=== PATIENT | female | born 1985 | race Two or more races ===

== ENCOUNTER 2024-08-13 20:58 | Emergency (ER) | payer BC, SELFPAY ==
[2024-08-13 20:59] VITALS: BMI 32.4
--- NOTE | 2024-08-13 22:19 | XR_ITS ---
Examination: Complete OB ultrasound, less than 14 weeks, transabdominal Date and time of exam: August 13, 2024 11:50 PM Indications: Diagnosis right ovarian carcinoma, vaginal bleeding today Technique: Obstetrical ultrasound images less than 14 weeks performed via transabdominal imaging Findings: A normal shaped single intrauterine gestation is present in the uterus. pole 2.6 cm corresponds to 9 weeks 0 day gestational age Cardiac motion 171 BPM Ultrasonographic survey of visible and placental structures unremarkable. Amniotic fluid volume appears appropriate for this estimated gestational age. Absent right ovary Left ovary 3.4 cm arterial flow Impression: Viable intrauterine gestation 9 weeks 2 days.
--- NOTE | 2024-08-13 22:20 | PD.EDRME ---
Rapid Medical Screening Exam RME Arrival date/time: 08/13/24 20:58 38-year-old female A1 approximately 8 weeks presents emergency department complaining of vaginal bleeding after having sexual intercourse today. Chief Complaint: Vaginal Bleeding Time Seen by Provider: 08/13/24 21:01 Vital signs reviewed by provider: Yes
[2024-08-13 22:27] VITALS: BP 166/95; PULSE 105; RESP 20; TEMP 36.6; O2SAT 99
[2024-08-13 22:59] LABS: Basophils # (Auto) 0.1 Thou/mm3 (0.0-0.2); Basophils % (Auto) 1 % (0-2.5); Eosinophils # (Auto) 0.1 Thou/mm3 (0.0-0.5); Eosinophils % (Auto) 1 % (0-10); Hematocrit 32.4 % (36.0-46.0); Hemoglobin 10.3 g/dL (12.0-16.0); Immature Granulocytes % (Auto) 1 % (0-0); Immature Granulocytes Auto 0.07 Thou/mm3 (0.00-0.00); Lymphocytes # (Auto) 1.6 Thou/mm3 (1.0-4.8); Lymphocytes % (Auto) 11 % (10-50); Mean Corpuscular HGB Conc 31.8 g/dl (31.0-37.0); Mean Corpuscular Hemoglobin 24.3 pg (25.0-35.0); Mean Corpuscular Volume 77 fL (80-100); Monocytes # (Auto) 0.8 Thou/mm3 (0.0-0.8); Monocytes % (Auto) 6 % (0-12); Neutrophils % (Auto) 82 % (37-80); Nucleated Red Blood Cell % 0 /100 WBC (0); Platelet Count 378 Thou/mm3 (140-440); RDW Standard Deviation 44.3 fL (36.4-46.3); Red Blood Count 4.23 Miln/mm3 (4.00-5.20); White Blood Count 14.7 Thou/mm3 (3.6-11.0)
[2024-08-13 23:15] LABS: Alanine Aminotransferase 19 U/L (10-49); Albumin, Serum 4.4 gm/dL (3.5-5.0); Albumin/Globulin Ratio 1.5 (1.2-2.2); Alkaline Phosphatase 77 U/L (46-116); Anion Gap 8 (7-16); Aspartate Amino Transferase 13 U/L (0-34); BUN/Creatinine Ratio 20 Ratio (12-20); Bilirubin,Total 0.2 mg/dL (0.3-1.2); Blood Urea Nitrogen 14 mg/dL (9-23); Calcium 9.3 mg/dL (8.3-10.6); Calcium (Corrected) 9.3 mg/dL (8.5-10.1); Carbon Dioxide 23.7 mMol/L (20.0-31.0); Chloride 105 mMol/L (98-107); Creatinine (Component) 0.7 mg/dL (0.6-1.3); Estimated Creatinine Clearance 110.1 mL/min (>60); Globulin 2.9 gm/dL (2.3-3.5); Glucose 160 mg/dL (74-106); Osmolality,Calculated 277 (275-295); Potassium 3.7 mMol/L (3.4-5.1); Sodium 137 mMol/L (136-145); Total Protein 7.3 gm/dL (5.7-8.2); eGFR > 60 See Note
[2024-08-13 23:20] LABS: Collection Type, Urine Clean Catch
[2024-08-13 23:48] LABS: Beta HCG,Quantitative 85820 mIU/mL (<5.0)
[2024-08-14 00:30] LABS: Bilirubin,Urine Negative (Negative); Blood,Urine 3+ (Negative); Clarity,Urine Clear (Clear/Hazy); Color,Urine Blue (Lt Yel-Yel); Culture Indicated,Urine Not Indicated; Glucose, Urine Negative (Negative); Ketones,Urine Negative (Negative); Leukocyte Esterase,Urine Positive (Negative); Nitrite,Urine Negative (Negative); PH,Urine 6.5 (5.0-7.0); Protein,Urine 1+ (Neg - Trace); RBC,Urine 598 /hpf (0-3); Specific Gravity,Urine 1.031 (1.001-1.035); Squamous Epithelial Cell,Urine 1 /hpf (0-5); Urobilinogen,Urine Negative mg/dL (0.0-1.0); WBC,Urine 5 /hpf (0-5)
--- NOTE | 2024-08-14 00:52 | PRELIM_ITS ---
Obstetric ultrasound ( transvaginal) with doppler and wave doppler spectral analysis. August 13, 2024 2350 hours Clinical history: Early viability Technique: Real-time ultrasound was performed using Duplex scanning including arterial inflow, venous outflow, color and spectral Doppler analysis of both ovaries. Comparison: None. Findings: There is an intrauterine gestation with a single live fetus of mean gestational age 9 weeks and 2 days (CRL= 2.6 cm). cardiac activity is present at heart rate of 171 beats per minute. The yolk sac is not visualized. The uterus measures 11.9 x 5.6 x 6.0 cm. Cystic lesion in the cervix measuring 1.9 x 1.2 x 2.6 cm. S/p right oophorectomy. The left ovary measures 3.4 x 2.2 x 2.2 cm and is unremarkable. Normal blood flow in the left ovary with normal wave Doppler spectral analysis. There is no free fluid in the pelvis. Impression: Intrauterine gestation with a single live fetus of mean gestational age 9 weeks and 2 days. Report Electronically Signed By: Uziel Paez 08/14/2024 12:51:43 AM [EST]
--- NOTE | 2024-08-14 01:28 | PD.EDVAGBL ---
ED OB Contraction Preg RMI/HPI General Chief complaint: Vaginal Bleeding Stated complaint: VAGINAL BLEEDING, 8 WKS Time Seen by Provider: 08/13/24 21:01 Source: patient Arrival date/time: 08/13/24 20:58 38-year-old female A1 approximately 8 weeks presents emergency department complaining of vaginal bleeding after having sexual intercourse today. Patient reports bleeding with scant. Patient Nuys any fever, chills, vomiting, or any other associated symptom. Mode of arrival: ambulatory Limitations: no limitations RME / HPI RME / HPI Narrative: 08/13/24 20:58 38-year-old female A1 approximately 8 weeks presents emergency department complaining of vaginal bleeding after having sexual intercourse today. Related Data Previous Rx's ?Medication ?Instructions ?Recorded albuterol sulfate 90 mcg/actuation 2 puff inhalation Q6HR PRN 07/29/16 aerosol inhaler (ProAir HFA) WHEEZING #1 inh Allergies Allergy/AdvReac Type Severity Reaction Status Date / Time No Known Allergies Allergy Verified 08/13/24 20:59 Review of Systems Review of Systems Systems Reviewed: All systems reviewed, normal except as documented Constitutional Constitutional: Reports system reviewed and no additional complaints, except as documented, Denies body ache(s), Denies chills and Denies fever(s) Eyes Eyes: Reports system reviewed and no additional complaints, except as documented and Denies change in vision ENT Ears, Nose, Mouth, and Throat: Reports system reviewed and no additional complaints, except as documented, Denies disequilibrium, Denies dizziness, Denies sore throat and Denies vertigo Cardiovascular Cardiovascular: Reports system reviewed and no additional complaints, except as documented, Denies chest pain and Denies dyspnea Respiratory Respiratory: Reports system reviewed and no additional complaints, except as documented, Denies chest congestion, Denies cough and Denies dyspnea Gastrointestinal Gastrointestinal: Reports system reviewed and no additional complaints, except as documented, Denies abdominal pain, Denies nausea and Denies vomiting Genitourinary Genitourinary: Reports abnormal vaginal bleeding Musculoskeletal Musculoskeletal: Reports system reviewed and no additional complaints, except as documented, Denies abnormal gait and Denies arthralgias Integumentary/Breasts Skin/Breast: Reports system reviewed and no additional complaints, except as documented, Denies erythema, Denies rash and Denies wounds Neurologic Neurologic: Reports system reviewed and no additional complaints, except as documented, Denies abnormal gait, Denies disequilibrium, Denies dizziness and Denies vertigo Past Medical History Past Medical History ENDOCRINE: Negative Diabetes Mellitus Type 2 Social History SMOKING STATUS: Never smoker ED Exam General Limitations: Present no limitations General appearance: Present alert and in no apparent distress Head Head exam: Present atraumatic Eye Eye exam: Present normal appearance, PERRL and EOMI ENT ENT exam: Present normal exam, normal oropharynx and mucous membranes moist Neck Neck exam: Present normal inspection, full ROM and trachea midline Chest Chest inspection: Present normal inspection and symmetric chest wall rise Respiratory Respiratory exam: Present normal lung sounds bilaterally Cardiovascular Cardiovascular exam: Present regular rate, normal rhythm and normal heart sounds Abdominal Exam Abdominal exam: Present soft and normal bowel sounds Extremities Exam Extremities exam: Present normal inspection and full ROM Back Exam Back exam: Present normal inspection and full ROM Neurological Exam Neurological exam: Present alert, oriented X3 and CN II-XII intact Psychiatric Psychiatric exam: Present normal affect and normal mood Skin Skin exam: Present warm, dry, intact and normal color Course Quality Measures none Orders Category Date Time Status US OB <= 14 weeks fetus Stat Exams 08/13/24 22:19 Taken ABO/RH Type Stat Lab 08/13/24 22:48 Completed Beta HCG,Quantitative Stat Lab 08/13/24 22:48 Completed CBC Stat Lab 08/13/24 22:48 Completed CMP [Comprehensive Metabolic Panel] Stat Lab 08/13/24 22:48 Completed Urinalysis, C/S if Indicated Stat Lab 08/13/24 22:46 Completed cefTRIAXone [Rocephin] 1,000 mg Med 08/14/24 01:15 Discontinued Lidocaine 1% 20 ml [Xylocaine 1% 20 ML] 2.1 ml IM X1 Vital Signs Vital signs: Vital Signs Temperature 97.8 F 08/13/24 22:27 Pulse Rate 105 H 08/13/24 22:27 Respiratory Rate 20 08/13/24 22:27 Blood Pressure 166/95 H 08/13/24 22:27 Pulse Oximetry (%) 99 08/13/24 22:27 Oxygen Delivery Method Room Air 08/13/24 22:27 99% room air within normal limits Vaginal Bleeding MDM Narrative MDM Narrative: 38-year-old female A1 approximately 8 weeks presents emergency department complaining of vaginal bleeding after having sexual intercourse today. Patient reports bleeding with scant. Patient Nuys any fever, chills, vomiting, or any other associated symptom. CBC mild leukocytosis 14.7 and hemoglobin 10.3. Leukocytosis possibly due to . CMP was unremarkable. Beta-hCG 85 820. Ultrasound report cardiac activity is present at heart rate of 171 bpm. Intrauterine gestation with single live fetus of mean gestational age 9 weeks and 2 days. Cystic lesion in the cervix measuring 1.9 x 1.2 x 2.6 cm. Patient stable for discharge. Instructed patient to follow-up with EXCEPTIONAL STUDENT EDUCATION AIDE Dr Forte for repeat ultrasound and beta-hCG trends. Urinalysis positive for leukocytes and WBCs will treat with IM dose of Rocephin and instruct patient to have repeat UA in office. Patient data External records reviewed:: [facility] previous records Clinical information provided by:: patient Social determinants that could affect healthcare access:: none Patient has the following chronic illnesses:: None How is presenting disease/condition affected by chronic disease/condition?: no chronic disease Evaluation data The following diagnostics were reviewed and interpreted by me:: lab results and radiology exam(s) Lab and/or radiology exams considered but not ordered:: Ordered Interpretation Summary: Interpreted by me Medications / Prescriptions Medications or Prescriptions considered but not ordered:: Ordered Medication administrations:: Medication Administration History Discontinued Medications Ceftriaxone Sodium 1,000 mg/ (Lidocaine HCl 2.1 ml) 0 mg IM X1 ONE Stop: 08/14/24 01:16 Given Consultations Consultation(s) initiated? (list below): No Diagnosis Vaginal Bleeding Differential Diagnosis: missed , threatened , dysfunctional uterine bleeding, menometrorrhagia, incomplete , ectopic without intrauterine and vaginal bleeding Most likely diagnosis given after review of the tests above:: Vaginal bleeding affecting early Admission Indicated Admission indicated?: not indicated Admission Request Was there a request for admission?: No Disposition Plan Disposition Plan: Discharge Discharge Attestation Discharge Attestation: The patient and all family members were given an opportunity to ask questions and understood the discharge instructions. Discharge instructions specifically effects, indications for sooner follow up or return to the emergency department, and the expected course of current diagnosis. Patient condition: Stable Discharge Plan Plan Patient Disposition: HOME (Self Care) Disposition Comment: Stable Prescriptions/Referrals Prescriptions/Med Rec: No Action albuterol sulfate [ProAir HFA] 8.5 GM HFA aerosol inhaler 2 puff Inhalation Q6HR PRN (Reason: WHEEZING) Qty: 1 0RF Rx Instructions: please give spacer Referrals: No Primary/Family,Physician [Primary Care Provider] - In 1 week Problem List Clinical Impression: Vaginal bleeding affecting early Patient/Caregiver Discharge Instructions Discharge Activity: activity as tolerated Education Materials: Bleeding During Early Additional Instructions: Drink plenty of fluids and get plenty of rest. Pelvic rest until you see EXCEPTIONAL STUDENT EDUCATION AIDE in 2 to 3 days. Return to emergency department for any worsening symptoms or as needed. Print Language: Kazakh Stand Alone Forms: Geeta Award Info., Patient Portal Info Letter PA/PERSONAL LINES INSURANCE AGENT Supervising Physician PA/PERSONAL LINES INSURANCE AGENT Supervising Physician: Dr. Givens
[2024-08-14] MEDS: cefTRIAXone 1,000 MG, LIDOCAINE 1% 20 ML 2.1 ML IM (01:38)
== END 2024-08-14 02:04 | disposition home or self-care (01) ==
PROVIDERS: Emergency Provider Emergency Medicine
DX: O20.9 Hemorrhage in early pregnancy, unspecified (principal); Z3A.08 8 weeks gestation of pregnancy
CPT/HCPCS: 36415; 76801; 80053; 81001; 84702; 85025; 86900; 86901; 96372; 99284; J0696; J3490

== ENCOUNTER 2025-01-22 21:22 | Observation (INO) | payer BC, SELFPAY ==
[2025-01-22] VITALS (20 sets, daily range): BP systolic 131; BP diastolic 75; PULSE 73–91; RESP 18; TEMP 36.6; O2SAT 96–99; BMI 33.8
[2025-01-22] MEDS: RINGERS LACTATED 1000 ML 1,000 ML 999 ML IV (22:00)
[2025-01-22 22:56] LABS: Collection Type, Urine Voided
[2025-01-22 22:58] LABS: Basophils # (Auto) 0.0 Thou/mm3 (0.0-0.2); Basophils % (Auto) 0 % (0-2.5); Eosinophils # (Auto) 0.1 Thou/mm3 (0.0-0.5); Eosinophils % (Auto) 2 % (0-10); Hematocrit 36.4 % (36.0-46.0); Hemoglobin 11.7 g/dL (12.0-16.0); Immature Granulocytes Auto 0.08 Thou/mm3 (0.00-0.00); Lymphocytes # (Auto) 1.7 Thou/mm3 (1.0-4.8); Lymphocytes % (Auto) 19 % (10-50); Mean Corpuscular HGB Conc 32.1 g/dl (31.0-37.0); Mean Corpuscular Hemoglobin 28.8 pg (25.0-35.0); Mean Corpuscular Volume 90 fL (80-100); Monocytes # (Auto) 0.7 Thou/mm3 (0.0-0.8); Monocytes % (Auto) 7 % (0-12); Neutrophils # (Auto) 6.6 Thou/mm3 (1.8-7.7); Neutrophils % (Auto) 71 % (37-80); Nucleated Red Blood Cell # 0.00 Thou/mm3 (0.00-0.00); Nucleated Red Blood Cell % 0 /100 WBC (0); Platelet Count 299 Thou/mm3 (140-440); RDW Standard Deviation 53.4 fL (36.4-46.3); Red Blood Count 4.06 Miln/mm3 (4.00-5.20); White Blood Count 9.3 Thou/mm3 (3.6-11.0)
[2025-01-22 23:27] LABS: FFN Specimen Descripton Clr Colrless Aqueous; Fetal Fibronectin Negative (Negative)
[2025-01-22 23:37] LABS: Bacteria,Urine 4+; Bilirubin,Urine Negative (Negative); Blood,Urine Negative (Negative); Clarity,Urine Clear (Clear/Hazy); Color,Urine Colorless (Lt Yel-Yel); Glucose, Urine Negative (Negative); Ketones,Urine 1+ (Negative); Leukocyte Esterase,Urine Positive (Negative); Nitrite,Urine Negative (Negative); PH,Urine 6.5 (5.0-7.0); Protein,Urine Negative (Neg - Trace); RBC,Urine 3 /hpf (0-3); Specific Gravity,Urine 1.004 (1.001-1.035); Squamous Epithelial Cell,Urine 5 /hpf (0-5); Urobilinogen,Urine Negative mg/dL (0.0-1.0); WBC,Urine 6 /hpf (0-5)
--- NOTE | 2025-01-22 23:39 | PD.ADDPROG ---
Addendum Progress Note Addendum Date of report being addended: 01/22/25 Narrative: Patient is a 39-year-old G1, P0 at 31-4/7 weeks with all care uncomplicated with Dr. Forte. She is a gestational diabetic diet controlled this . She presented to triage earlier this evening reporting cramping and decreased movement. She was sree regularly on the monitor. A CBC and IV bolus were ordered. A urinalysis was ordered. A fibronectin was negative. After getting a liter of fluids, her contractions spaced out and she was not reporting any more cramping. The fibronectin resulted negative. The plan will be to send the patient home on pelvic rest. Follow-up with Dr Forte for her urinalysis results. Come back if the contractions get stronger and more regular.
== END 2025-01-22 23:53 | disposition home or self-care (01) ==
PROVIDERS: Admitting Provider Obstetrics & Gynecology; Visit Provider Obstetrics & Gynecology
DX: O36.8130 Decreased fetal movements, third trimester, not applicable or unspecified (principal); O47.03 False labor before 37 completed weeks of gestation, third trimester; O24.410 Gestational diabetes mellitus in pregnancy, diet controlled; Z3A.31 31 weeks gestation of pregnancy
CPT/HCPCS: 36415; 59025; 59899; 81001; 82731; 85025; J7120

== ENCOUNTER 2025-02-28 22:23 | Observation (INO) | payer BC, SELFPAY ==
[2025-02-28 22:25] VITALS: TEMP 36.9; BMI 33.9
[2025-02-28 22:34] VITALS: BP 127/75; PULSE 78; RESP 16; RESP 96; TEMP 36.9
== END 2025-02-28 23:20 | disposition home or self-care (01) ==
PROVIDERS: Admitting Provider Specialist; Visit Provider Specialist
DX: O36.8130 Decreased fetal movements, third trimester, not applicable or unspecified (principal); Z3A.36 36 weeks gestation of pregnancy
CPT/HCPCS: 59025; 59899

== ENCOUNTER 2025-03-16 08:48 | Inpatient (IN) | payer BC, SELFPAY ==
--- NOTE | 2025-03-15 16:23 | PC.NURSE ---
Patient is 39 weeks today scheduled for an IOL due to GDM, unable to bring pt in for induction due to bed availability. Dr. Forte called and notified, states patient just had an NST 3 days ago in the office and does not need to bring in today for additional monitoring.
[2025-03-16 08:52] VITALS: RESP 18; TEMP 36.8
[2025-03-16 09:00] VITALS: BMI 33.5
--- NOTE | 2025-03-16 09:09 | PD.LDHP ---
Documentation for date of: 03/16/25 OB Labor/Induct. HPI History of Present Illness History of present illness: H and P dictated in Nuance on STAT line #9 : [id number] Meds Home Medications and Allergies Home Medications ?Medication ?Instructions ?Recorded ?Confirmed ?Type aspirin 81 mg tablet,delayed 81 mg PO DAILY 02/28/25 02/28/25 History release ferrous sulfate 325 mg (65 mg 325 mg PO DAILY 02/28/25 02/28/25 History iron) tablet vitamin-ferrous fumarate 1 tab PO QDAY 02/28/25 02/28/25 History 28 mg iron-folic acid 800 mcg tablet ( Tablet) Allergies Allergy/AdvReac Type Severity Reaction Status Date / Time No Known Allergies Allergy Verified 02/28/25 22:50
[2025-03-16 09:20] VITALS: BP 118/79; PULSE 84
[2025-03-16] MEDS: RINGERS LACTATED 500 ML 500 ML 999 ML IV (09:25)
[2025-03-16 10:12] LABS: Basophils # (Auto) 0.0 Thou/mm3 (0.0-0.2); Basophils % (Auto) 0 % (0-2.5); Eosinophils # (Auto) 0.1 Thou/mm3 (0.0-0.5); Eosinophils % (Auto) 1 % (0-10); Hematocrit 39.7 % (36.0-46.0); Hemoglobin 13.4 g/dL (12.0-16.0); Immature Granulocytes Auto 0.11 Thou/mm3 (0.00-0.00); Lymphocytes # (Auto) 1.1 Thou/mm3 (1.0-4.8); Lymphocytes % (Auto) 13 % (10-50); Mean Corpuscular HGB Conc 33.8 g/dl (31.0-37.0); Mean Corpuscular Hemoglobin 30.3 pg (25.0-35.0); Mean Corpuscular Volume 90 fL (80-100); Monocytes # (Auto) 0.4 Thou/mm3 (0.0-0.8); Monocytes % (Auto) 5 % (0-12); Neutrophils # (Auto) 6.6 Thou/mm3 (1.8-7.7); Neutrophils % (Auto) 79 % (37-80); Nucleated Red Blood Cell # 0.00 Thou/mm3 (0.00-0.00); Nucleated Red Blood Cell % 0 /100 WBC (0); Platelet Count 276 Thou/mm3 (140-440); RDW Standard Deviation 53.9 fL (36.4-46.3); Red Blood Count 4.42 Miln/mm3 (4.00-5.20); White Blood Count 8.3 Thou/mm3 (3.6-11.0)
[2025-03-16 10:46] LABS: Syphilis Nonreactive (Nonreactive)
[2025-03-16] MEDS: RINGERS LACTATED 1000 ML 1,000 ML 100 ML IV (14:30)
[2025-03-16 16:25] VITALS: RESP 16; TEMP 37.2
[2025-03-16 19:15] VITALS: RESP 16; TEMP 37.4
[2025-03-16 19:44] VITALS: BMI 33.5
[2025-03-16 21:02] VITALS: BP 122/83; PULSE 89
[2025-03-16 23:30] VITALS: RESP 16; TEMP 37.4
[2025-03-17] VITALS (128 sets, daily range): BP systolic 93–222; BP diastolic 54–155; PULSE 57–181; RESP 16–18; TEMP 36.2–37.7; O2SAT 88–100
[2025-03-17] MEDS: RINGERS LACTATED 1000 ML 1,000 ML 100 ML IV ×2 (00:05→05:48)
[2025-03-17] MEDS: OXYTOCIN in NS 30 units 30 UNIT/500 ML BAG IV (07:09)
[2025-03-17] MEDS: Ampicillin Inj 2,000 MG in SODIUM CHLORIDE 0.9% (POP) 100 ML 100 MG IV (07:27)
[2025-03-17] MEDS: GENTAMICIN/NS 80 MG IVPB 80 MG in PRE-MIXED 1 BAG 50 MG IV (08:02)
--- NOTE | 2025-03-17 08:47 | PD.LDPN ---
Documentation for date of: 03/17/25 OB Labor Progress Note Pain Control Comments: Epidural Pelvic Exam Dilation (cm): 6 Effacement (%): 80 station: -1 Amniotic membrane status: Ruptured Comments: clear fluid Head well applied to cervix. Contractions Monitor mode: External Contraction frequency: 2-4 Contraction pattern: Coupling Contraction intensity: Moderate Status status: Category l Assessment and Plan Comments: Anticipate
[2025-03-17] MEDS: MINERAL OIL 30 ML UDC TOP (10:20)
[2025-03-17] MEDS: OXYTOCIN in NS 20 units 20 UNIT/1,000 ML BAG 125 UNIT IV (10:24)
[2025-03-17] MEDS: BENZO/LANO/ALOE (Dermoplast) 60 GM CAN 1 SPRAY TOP (11:00)
[2025-03-17] MEDS: IBUPROFEN TAB 400 MG TABLET 800 MG PO ×2 (12:29→23:28)
--- NOTE | 2025-03-17 15:20 | PD.LDDELS ---
Data (Chinchilla) Data Hx Section: No : 2 Term: 0 : 0 Livin Abortions: Spontaneous & Theraputic: 1 Delivery Data (Chinchilla) Labor Data Initiation of labor: Augmentation Induction/Augmentation Agent: Cytotec-PO, Cervidil and Pitocin ROM date: 03/17/25 ROM time: 08:17 Amniotic membrane rupture type: Artificial Amniotic fluid description: Clear Delivery Data EDC: 03/22/25 EDC calculated by:: LMP/early US confirmation Onset of labor date: 03/17/25 Onset of labor time: 05:30 Complete dilation date: 03/17/25 Complete dilation time: 10:00 delivery date: 03/17/25 Sacul delivery time: 10:23 Gestational age (weeks): 39 Gestational age (days): 2 Placenta delivery date: 03/17/25 Placenta delivery time: 10:30 Stage 1 total time: Labor - Stage 1 Duration 4 hours and 30 minutes Delivered by: Sunil Forte Delivery nurse: Jluis Butcher RN [place] nurse: Susanne WOMACK RN, Tool Storage Attendant at delivery: No Support person(s) at delivery: fob, grandma of baby Other staff at delivery: Harjeet Alba RN Delivery Method Delivery method: Normal Vaginal Delivery Presentation: Vertex position: OA Anesthesia Type Anesthesia Type: Epidural Placenta Placenta delivery description: Spontaneous Cord blood sent to lab: Yes cord blood collection: Cord Blood Type Lacerations #1: Perineal: 2nd degree Labial: Right upper labial: 2nd degree. Perineal repair Sutures used for repair: 3.0 Chromic EBL Estimated blood loss (ml): 200 Umbilical Cord cord description: 3 Vessels Additional Procedures None Complications Complications: None Data (Chinchilla) Data order: 1 's gender: Female Identification band number: [id number] weight (gms): 7 lb 0.7 oz Weight (pounds): 7 lbs and 0.7 ozs 1 minute: 9 5 minutes: 9
--- NOTE | 2025-03-17 15:20 | PD.LDDS ---
DS: Providers Provider Date of admission: 03/16/25 08:48 Primary care physician: Duong Lance MD Admitting Provider: Sunil Forte MD Attending Provider on Admission: Sunil Forte MD Consults: 03/17/25 11:55 Referral Routine Comment: Attending Provider on DC: Sunil Forte MD Discharging Provider: Sunil Forte MD DS: Diagnosis Problem List Completed Was Problem List Reviewed/Reconciled?: Yes Summary/Hosp Course Brief History: H and P dictated in Nuance on STAT line #9 : [id number] Peripartum Data Delivery Method: Normal Vaginal Delivery Time Spent with Patient Time attestation: Total time spent providing and/or coordinating discharge services: Exam Vital Signs Temp Pulse Resp BP Pulse Ox 97.4 F 144 H 18 124/59 L 91 L 03/17/25 09:38 03/17/25 12:18 03/17/25 07:00 03/17/25 12:18 03/17/25 10:23 Discharge Plan Plan Patient Disposition: HOME (Self Care) Patient condition on transfer: Stable Prescriptions/Referrals Prescriptions/Med Rec: New ibuprofen 600 mg tablet 600 mg PO Q6H PRN (Reason: pain) Qty: 30 0RF Continued ferrous sulfate 325 mg (65 mg iron) tablet 325 mg PO DAILY vit-iron fum-folic ac [ Tablet] 28 mg iron- 800 mcg tablet 1 tab PO QDAY Discontinued aspirin 81 mg tablet,delayed release (DR/EC) 81 mg PO DAILY Referrals: Duong Lance MD [Primary Care Provider, Family Practice] Patient/Caregiver Discharge Instructions Discharge Activity: activity as tolerated Other Discharge Activity Instructions:: Follow up office 6 weeks. Education Materials: After a Vaginal , Breast Care After , Incision Care After Vaginal Print Language: Pashto Stand Alone Forms: Geeta Award Info., Patient Portal Info Letter Discharge Order Discharge Orders: Discharge (Routine); Ordered 03/19/25 Ordered By: Sunil Forte Planned Discharge Date 03/19/25
[2025-03-17 17:09] LABS: Basophils # (Auto) 0.0 Thou/mm3 (0.0-0.2); Basophils % (Auto) 0 % (0-2.5); Eosinophils # (Auto) 0.1 Thou/mm3 (0.0-0.5); Eosinophils % (Auto) 1 % (0-10); Hematocrit 31.4 % (36.0-46.0); Hemoglobin 10.5 g/dL (12.0-16.0); Immature Granulocytes Auto 0.07 Thou/mm3 (0.00-0.00); Lymphocytes # (Auto) 1.5 Thou/mm3 (1.0-4.8); Lymphocytes % (Auto) 11 % (10-50); Mean Corpuscular HGB Conc 33.4 g/dl (31.0-37.0); Mean Corpuscular Hemoglobin 30.3 pg (25.0-35.0); Mean Corpuscular Volume 91 fL (80-100); Monocytes # (Auto) 0.9 Thou/mm3 (0.0-0.8); Monocytes % (Auto) 7 % (0-12); Neutrophils # (Auto) 10.7 Thou/mm3 (1.8-7.7); Neutrophils % (Auto) 81 % (37-80); Nucleated Red Blood Cell # 0.00 Thou/mm3 (0.00-0.00); Nucleated Red Blood Cell % 0 /100 WBC (0); Platelet Count 241 Thou/mm3 (140-440); RDW Standard Deviation 53.9 fL (36.4-46.3); Red Blood Count 3.47 Miln/mm3 (4.00-5.20); White Blood Count 13.3 Thou/mm3 (3.6-11.0)
[2025-03-17] MEDS: ACETAMINOPHEN 325 MG TABLET 650 MG PO (17:36)
[2025-03-17] MEDS: Ampicillin Inj 2,000 MG in SODIUM CHLORIDE 0.9% (POP) 100 ML 200 MG IV ×2 (17:36→23:28)
[2025-03-18 02:16] LABS: Gentamicin, Random < 0.5 mcg/mL (4.0-10.0)
[2025-03-18 04:50] VITALS: BP 116/80; PULSE 76; RESP 18; TEMP 36.6; O2SAT 98
[2025-03-18] MEDS: ACETAMINOPHEN 325 MG TABLET 650 MG PO (05:01)
[2025-03-18] MEDS: Ampicillin Inj 2,000 MG in SODIUM CHLORIDE 0.9% (POP) 100 ML 200 MG IV ×4 (05:30→23:53)
[2025-03-18 05:58] LABS: Alanine Aminotransferase 13 U/L (10-49); Albumin, Serum 2.9 gm/dL (3.5-5.0); Albumin/Globulin Ratio 1.6 (1.2-2.2); Alkaline Phosphatase 107 U/L (46-116); Anion Gap 7 (7-16); Aspartate Amino Transferase 17 U/L (0-34); BUN/Creatinine Ratio 8 Ratio (12-20); Bilirubin,Total 0.3 mg/dL (0.3-1.2); Blood Urea Nitrogen < 5 mg/dL (9-23); Calcium 8.5 mg/dL (8.3-10.6); Calcium (Corrected) 9.4 mg/dL (8.5-10.1); Carbon Dioxide 22.6 mMol/L (20.0-31.0); Chloride 112 mMol/L (98-107); Creatinine (Component) 0.6 mg/dL (0.6-1.3); Estimated Creatinine Clearance 129.4 mL/min (>60); Globulin 1.8 gm/dL (2.3-3.5); Glucose 105 mg/dL (74-106); Osmolality,Calculated 280 (275-295); Potassium 3.8 mMol/L (3.4-5.1); Sodium 142 mMol/L (136-145); Total Protein 4.7 gm/dL (5.7-8.2); eGFR > 60 See Note
[2025-03-18 07:15] VITALS: BP 114/78; PULSE 78; RESP 20; TEMP 36.8; O2SAT 97
--- NOTE | 2025-03-18 07:15 | ESPR_ITS ---
RE: ROSANNEKACIELACEY CLAIRE : 1985 DATE OF SERVICE: 03/18/2025 day number 1. The patient reports a headache without any neurologic symptoms. She feels better when she lays flat. Advertising Specialist is following her.. She is voiding. She is ambulating. She is tolerating regular diet. She is passing flatus. She denies any excessive vaginal bleeding. She denies any dizziness or lightheadedness. She denies any chest pain, palpitations, shortness of breath or lower extremity pain. OBJECTIVE: Vital Signs: Blood pressure 116/80, heart rate 76, respirations 18, temperature is 97.8, pulse oximetry is 98% on room air. Lungs: Clear to auscultation bilaterally. Heart: Regular rate and rhythm. Abdomen: Fundus is firm, nontender. Extremities: Nontender. Neuro: No deficiet Hemoglobin pre-delivery is 13.4, post-delivery is 10.5. ASSESSMENT AND PLAN: day number 1, status post spontaneous vaginal delivery, chorioamnionitis. Post dural puncture headache. Continue antibiotics. Supportive Care. Possible Discharge home tomorrow. DT: 07:09:35 TT: 07:14:00 Ref: [id number] - TID: [id number] [facility]
--- NOTE | 2025-03-18 08:30 | PD.ANESPROG ---
Documentation for date of: 03/18/25 Anesthesia Progress Note Progress Note Most recent Vital Signs: Last Vital Signs Temp 36.8 C 03/18/25 07:15 Pulse 78 03/18/25 07:15 Resp 20 03/18/25 07:15 BP 114/78 03/18/25 07:15 Pulse Ox 97 03/18/25 07:15 O2 Del Method Room Air 03/18/25 07:15 Narrative: I received a report this morning that the patient has a post-dural puncture headache from inadvertent puncture of the dura during Epidural Anesthesia for labor pains. Patient was given coffee and coke with Tylenol and motrin but no relief. A caffeine IV will be started after pharmacy prepares solution. She will be monitored closely and if that will not resolve the headache, an Epidural blood patch will perfomed for ultimate relief. Signed: George Connelly CRNA
[2025-03-18] MEDS: [UNRECOGNIZED DRUG - OTHER] IV (09:47)
[2025-03-18] MEDS: FILTER MICRON CONICAL IV (09:47)
[2025-03-18] MEDS: SODIUM BENZOATE IV (09:47)
[2025-03-18] MEDS: CAFFEINE IV (09:47)
[2025-03-18 12:20] VITALS: BP 121/78; PULSE 71; RESP 18; TEMP 37.1; O2SAT 99
[2025-03-18] MEDS: IBUPROFEN TAB 400 MG TABLET 800 MG PO (13:53)
[2025-03-18 20:18] VITALS: BP 113/76; PULSE 82; RESP 18; TEMP 37.2; O2SAT 98
[2025-03-19 05:00] VITALS: BP 118/79; PULSE 82; RESP 18; TEMP 36.9; O2SAT 98
[2025-03-19] MEDS: Ampicillin Inj 2,000 MG in SODIUM CHLORIDE 0.9% (POP) 100 ML 200 MG IV (06:04)
--- NOTE | 2025-03-19 06:11 | PD.ANESPROG ---
Documentation for date of: 03/19/25 Anesthesia Progress Note Progress Note Most recent Vital Signs: Last Vital Signs Temp 37.2 C 03/18/25 20:18 Pulse 82 03/18/25 20:18 Resp 18 03/18/25 20:18 BP 113/76 03/18/25 20:18 Pulse Ox 98 03/18/25 20:18 O2 Del Method Room Air 03/18/25 20:18 Narrative: At 4pm yesterday I received a call from the post- nurse that the patient is still having a terrible headache even after she is being treated conservatively with caffeine IV. An Epidural blood patch was performed in the usual sterile fashion with the help of an RN to draw blood. A loss of resistance at the 6 cm. depth was identified and a 20 ml. of blood was injected into the Epidural space with immediate relief. The patient was monitored closely for back pain, breathing, saturation and hypotension. Patient was advised to lie flat in bed to facilitate spread of blood into the leak. This morning I checked with the RN and she said that she did not complain headache during the night even after getting up to the bathroom. Signed by: George Connelly CRNA
[2025-03-19 07:37] VITALS: BP 128/86; PULSE 76; RESP 18; TEMP 36.7; O2SAT 96
--- NOTE | 2025-03-19 07:45 | PD.LDPPPRG ---
Subjective Subjective Interval history: Patient denies any problem or complaint. She said her headache has resolved. She is voiding and ambulating and tolerating a regular diet. She denies any excessive vaginal bleeding. She denies any chest pain palpitations shortness of breath or lower extremity pain. She denies any depression or anxiety. She denies any dizziness or lightheadedness. Exam Vital Signs Temp Pulse Resp BP Pulse Ox O2 Del Method 98.0 F 76 18 128/86 H 96 Room Air 03/19/25 07:37 03/19/25 07:37 03/19/25 07:37 03/19/25 07:37 03/19/25 07:37 03/19/25 07:37 Routine Respiratory Exam Comments: Clear to auscultation bilaterally Routine Cardiovascular Exam Comments: Regular rate and rhythm Routine Extremities Exam Comments: Nontender or edema Routine Skin Exam Comments: No gross rashes or lesions Routine Neurological Exam Comments: No deficits Objective Labs 03/17/25 16:55 03/18/25 05:05 Impressions Impression: day #2 status post spontaneous vaginal delivery Chorioamnionitis plan discontinue amp and gent discharged home without any antibiotics Headache resolved discharge home with Motrin as needed Follow-up in the office in 6 weeks Discharge instructions given Assessment & Plan Time Spent With Patient Time: Total time spent is greater than 50% in coordination of care (as documented) at patient's floor/unit and/or counseling patient:
[2025-03-19 07:58] LABS: Alanine Aminotransferase 15 U/L (10-49); Albumin, Serum 3.2 gm/dL (3.5-5.0); Albumin/Globulin Ratio 1.5 (1.2-2.2); Alkaline Phosphatase 110 U/L (46-116); Anion Gap 8 (7-16); Aspartate Amino Transferase 17 U/L (0-34); BUN/Creatinine Ratio 10 Ratio (12-20); Bilirubin,Total 0.2 mg/dL (0.3-1.2); Blood Urea Nitrogen < 5 mg/dL (9-23); Calcium 9.0 mg/dL (8.3-10.6); Calcium (Corrected) 9.6 mg/dL (8.5-10.1); Carbon Dioxide 24.0 mMol/L (20.0-31.0); Chloride 110 mMol/L (98-107); Creatinine (Component) 0.5 mg/dL (0.6-1.3); Estimated Creatinine Clearance 155.3 mL/min (>60); Globulin 2.1 gm/dL (2.3-3.5); Glucose 87 mg/dL (74-106); Osmolality,Calculated 279 (275-295); Potassium 3.4 mMol/L (3.4-5.1); Sodium 142 mMol/L (136-145); Total Protein 5.3 gm/dL (5.7-8.2); eGFR > 60 See Note
--- NOTE | 2025-03-19 09:16 | ESHP_ITS ---
RE: LACEY PATHAK : 1985 DATE OF ADMISSION: 03/16/2025 HISTORY OF PRESENT ILLNESS: This is a 39-year-old 1, para 0 with due date of 03/22/2025 with intrauterine of 39 weeks and 1 day who presents for induction of labor. The patient's most recent ultrasound on 03/09/2025 shows overall growth at the 51st percentile with weight estimated at 3278 grams or 7 pounds 4 ounces. She denies any leaking or bleeding. She reports normal movement. Her was complicated by gestational diabetes mellitus, class A1, well controlled. She had a COVID-19 mild infection on 11/15/2024. She had a normal maternal medicine ultrasound on 11/03/2024 and again on 02/09/2025. ALLERGIES: NO KNOWN DRUG ALLERGIES. MEDICATIONS: 1. multivitamin 1 p.o. daily. 2. Ferrous sulfate 325 mg 1 p.o. daily. 3. Aspirin 81 mg 1 p.o. daily. PAST MEDICAL HISTORY: Gestational diabetes mellitus class A1, mild COVID-19 infection in 10/2024, endometrial polyp, endometriosis, nasal cavity polyp, advanced maternal age, sciatica, iron deficiency anemia. SOCIAL HISTORY: Denies any alcohol, drug use, or smoking. FAMILY HISTORY: Denies. PAST SURGICAL HISTORY: Right oophorectomy, left ovarian cystectomy, removal of endometrial polyp, nasal polypectomy. REVIEW OF SYSTEMS: She denies any chest pain, palpitations, cough, fever, shortness of breath or lower extremity pain. PHYSICAL EXAMINATION: VITAL SIGNS: Blood pressure 122/80, heart rate 88, respirations 18, temperature 98.6. HEENT: Oropharynx and sclerae are clear. LUNGS: Clear to auscultation bilaterally. HEART: Regular rate and rhythm. ABDOMEN: Gravid. Consistent with estimated weight 7.5 pounds. PELVIC: See RN notes. EXTREMITIES: Nontender. SKIN: No gross rashes or lesions. NEUROLOGIC: No focal deficits. ASSESSMENT AND PLAN: Intrauterine at 39 weeks and 1 day, advanced maternal age, gestational diabetes mellitus class A1, well controlled; induction of labor. Anticipate spontaneous vaginal delivery. Informed consent was obtained. The patient has been made aware of the risks, complications, alternatives, and benefits of operative vaginal delivery and delivery and agrees with these modes of delivery if indicated. DT: 08:14:26 TT: 08:25:00 Ref: [id number] - TID: [id number]
== END 2025-03-19 10:00 | disposition home or self-care (01) | DRG 807 ==
LOC: S4SX 08:49 → S4NX 03-17 12:29
PROVIDERS: Admitting Provider Specialist; PCP Family Medicine; Visit Provider Specialist
DX: O41.1230 Chorioamnionitis, third trimester, not applicable or unspecified (principal); Z37.0 Single live birth; O70.1 Second degree perineal laceration during delivery; O89.4 Spinal and epidural anesthesia-induced headache during the puerperium; O24.420 Gestational diabetes mellitus in childbirth, diet controlled; Z3A.39 39 weeks gestation of pregnancy; Z86.16 Personal history of COVID-19; Z90.721 Acquired absence of ovaries, unilateral; Z79.82 Long term (current) use of aspirin
CPT/HCPCS: 36415; 59409; 80053; 80170; 85025; 86780; 86850; 86900; 86901; 94762; J0290; J1580; J2590; J2795; J3010; J3490; J7030; J7050; J7120; A9270